=== PATIENT | male | born 1955 | race Caucasian/White ===

== ENCOUNTER 2020-07-26 08:08 | Day surgery (SDC) | payer MEDICARE, BC, SELFPAY ==
[2020-07-26 08:35] VITALS: BP 145/85; PULSE 57; RESP 16; TEMP 36.2; O2SAT 99
[2020-07-26] MEDS: Tropicam./Phenyleph. (1/2.5%) 5 ML BTL OS ×3 (08:39→08:49)
[2020-07-26] MEDS: Tetracaine 0.5% 4 ML BTL OS (09:37)
[2020-07-26] MEDS: Duovisc Viscoelastic System EACH 1 EACH (09:39)
[2020-07-26] MEDS: Balanced Salt Soln.-PLUS 500 ML BAG (09:39)
[2020-07-26] MEDS: Lidocaine 2% Jelly 6 ML SYR (09:40)
[2020-07-26] MEDS: Lidocaine 1% Pres-Free 5 ML VIAL (09:40)
[2020-07-26] MEDS: Povidone-Iodine Ophth 30 ML BTL (09:41)
--- NOTE | 2020-07-26 10:09 | W.PM.DSUDISC ---
Discharge Plan Disposition Patient Disposition: HOME Condition: Good Discharge Details Attending Provider: Alexander Abrams Primary Care Provider: Inocencio Peterson Home Meds and New Rx's Prescriptions: No Action COSOPT 5 ML drops 1 drp Ophthalmic BID RF: 0 ONE-A-DAY MEN'S 1 TAB tablet 1 tab PO DAILY RF: 0 XALATAN 2.5 ML drops 1 drp OU DAILY RF: 0 ECOTRIN 81 MG TABLET.DR 81 mg PO DAILY Qty: 90 RF: 3 PROCTOCREAM-HC 2.5% 30 GM CREAM.GM. 1 applic Topical PRN Qty: 30 RF: 1 ZOCOR 10 MG tablet 5 mg PO HS Qty: 90 RF: 3 tamsulosin 0.4 mg capsule 0.4 mg PO DAILY RF: 0 metoprolol tartrate 50 mg tablet 50 mg PO BID RF: 0 gabapentin 300 mg capsule 300 mg PO HS RF: 0 lisinopril-hydrochlorothiazide 20-25 mg tablet 1 tab PO DAILY RF: 0 brimonidine 0.2 % drops 1 drp ophthalmic (eye) BID RF: 0 cholecalciferol (vitamin D3) [Vitamin D3] 125 mcg (5,000 unit) Tablet 125 mcg PO DAILY RF: 0 Discharge Instructions Stand Alone Forms: Post-op Topical Cataract, Marsha Pyle (DSU) Discharge Orders Discharge Orders: Discharge Order (Routine); Ordered 07/26/20 Ordered By: Alexander Abrams DS: Diagnosis Discharge Diagnosis (1) Nuclear sclerotic cataract of left eye: Status: Resolved
--- NOTE | 2020-07-26 10:11 | ROE_ITS ---
Date of service: 07/26/20 Time of Service: 10:12 Operative Note Operative Note DATE OF PROCEDURE: 07/26/20 PRE-OP DIAGNOSIS: Nuclear cataract, left eye Poorly dilating pupil, left eye POST-OP DIAGNOSIS: same PROCEDURE: Cataract extraction by phacoemulsification with intraocular lens implantation, left eye, with pupillary expansion device SURGEON: Alexander Abrams Refer to Anesthesia Record ESTIMATED BLOOD LOSS: 0 PATHOLOGY: none sent COMPLICATIONS: None Patient was transported to: same day Patient's condition: stable Implants: Damian [employer] Damian / [employer] Tecnis [id number] Indications: Progressive decreased vision, left eye Procedure Description: CATARACT SURGERY OPERATIVE REPORT PREOPERATIVE DIAGNOSIS: 1. Nuclear cataract, left eye 2. Poorly dilating pupil, left eye POSTOPERATIVE DIAGNOSIS: Same OPERATION: 1. Cataract extraction using phacoemulsification with posterior chamber intraocular lens implant, left eye. 2. Pupillary dilation and iris stabilization using Malyugin Ring IOL; IOL Model And Pattern Supervisor/Model: Damian & Damian / TAMIKO Tecnis ZCB00 IOL Power: + 15.5 diopters IOL Serial Number: [id number] Optic Diameter: 6.0 mm Haptic/Overall Diameter: 13.00 mm PHACO INFO: Roe Centurion Vision System with OZil and Active Fluidics Cumulative Dispersed Energy (CDE): 10.18 seconds SURGEON: Alexander Abrams MD, RICARDO ANESTHESIA: Monitored Anesthesia Care (MAC), with local sub-tenon's anesthetic infiltration COMPLICATIONS: None SPECIMENS: None INDICATIONS FOR PROCEDURE: The patient is a 65-year-old gentleman with a long history of open-angle glaucoma with significant disc cupping. He has developed moderate bilateral cataracts. He has a history of myopia. Glaucoma is under less than ideal control, and he may require incisional glaucoma surgery in the future. Cataract surgery is undertaken to improve his visual acuity, perhaps have some effect on intraocular pressure, and so he is pseudophakic for possible future glaucoma surgery. PROCEDURE: The correct surgical eye was identified and marked as the left eye and the pupil was dilated in the preoperative area using mydriatics, cycloplegics, and NSAIDS (except in aspirin allergic patients). The dilated pupil size was 5.0 mm. Oral sedation was administered in the form of an Imprimis MKO Melt (midazolam 3mg/ketamine 25mg/ondansetron 2mg). The patient was brought to the operating room where cardiopulmonary monitoring was instituted and surgical time-out was performed, confirming the correct operative eye and IOL power. Topical anesthesia was administered and ophthalmic povidone-iodine 5% was instilled into the conjunctival fornices. Lidocaine gel was applied to the cornea and the everett-ocular area was prepped with Betadine 10% solution and draped in the usual sterile fashion for intraocular surgery, including an apertu re drape. A Tegaderm transparent film dressing was cut in half and used to cover the lashes and lid margins. Care was taken to sequester the lashes and lid margins under the Tegaderm dressing. A lid speculum was placed between the lids of the operative eye and the London-Nahid operating microscope was maneuvered into position. Kylah scissors were then used to make a conjunctival buttonhole approximately 6mm posterior to the limbus in the inferonasal quadrant. Blunt dissection was carried out to expose bare sclera, and a blunt-tipped sub-tenon?s anesthesia cannula was introduced and passed posteriorly along the globe where non- preserved plain lidocaine was injected into posterior sub-Tenon?s space. A sideport knife was used to make a paracentesis port superiorly/superiortemporally. Intraocular phenylephrine/lidocaine was injected into the anterior chamber. The anterior chamber was then filled with viscoelastic. A 2.4mm keratome knife was used to create a half-thickness groove at the limbus and then to construct a three-plane near-clear corneal tunnel extending 2.0mm into clear cornea at the temporal position. A 7.0 mm Malyugin Ring was then inserted into the pupillary space and engaged with the Kuglen hook. A flap was raised on the anterior capsule and capsulorhexis forceps were used to complete a continuous curvilinear capsulorhexis of 5.0 mm. The anterior capsule was noted to be quite thin with some zonular laxity. The anterior chamber was very deep. Balanced salt solution was then used to perform cortical cleaving hydrodissection and nuclear hydrodelineation until the lens could be freely rotated within the capsular bag. The lens nucleus was then disassembled and removed within the capsular bag and iris plane using phacoemulsification. Residual cortical material was removed using the 45-degree angled silicone I/A tip with 0.3mm port. The posterior capsule was carefully polished to remove as much residual lens epithelial cells as safely possible. The capsular bag was then inflated and the anterior chamber deepened with viscoelastic. The lens implant described above was inserted into the capsular bag using the TAMIKO [place] Injector. A Kuglen hook was used to dial the IOL into position. The Malyugin Ring was removed in the reverse order of its insertion. Residual viscoelastic was then removed first from posterior to the IOL, then from the anterior chamber using the I/A handpiece. The lens implant was noted to center nicely within the capsular bag. The incisions were stromally hydrated, and the anterior chamber was reformed using BSS. Then 0.5cc of moxifloxacin 1.0mg/ml were injected into the capsular bag and anterior chamber. The incisions were checked with a Weck spear and found to be secure. Several drops of ophthalmic povidone-iodine 5% were then applied to the eye followed by two drops of Imprimis combination prednisolone/moxifloxacin/nepafenac solution. The drapes were removed and a clear plastic protective eye shield was placed over the eye. The patient was then returned to [facility] Day Surgery in stable condition.
== END 2020-07-26 10:32 | disposition home or self-care (01) ==
PROVIDERS: PCP Family Medicine; Visit Provider Ophthalmology
PROC: (CPT 66982; principal; 2020-07-26 10:30)
DX: H25.12 Age-related nuclear cataract, left eye (principal); H57.09 Other anomalies of pupillary function; H40.10X0 Unspecified open-angle glaucoma, stage unspecified
CPT/HCPCS: 66982; V2632

== ENCOUNTER 2020-08-09 08:06 | Day surgery (SDC) | payer MEDICARE, BC, SELFPAY ==
[2020-08-09] MEDS: Tropicam./Phenyleph. (1/2.5%) 5 ML BTL OD ×3 (08:27→08:51)
[2020-08-09 08:30] VITALS: BP 126/78; PULSE 60; RESP 16; TEMP 36.1; O2SAT 99
[2020-08-09] MEDS: Lidocaine 2% Jelly 6 ML SYR (09:35)
[2020-08-09] MEDS: Tetracaine 0.5% 4 ML BTL OD (09:35)
[2020-08-09] MEDS: Povidone-Iodine Ophth 30 ML BTL (09:36)
[2020-08-09] MEDS: Lidocaine 1% Pres-Free 5 ML VIAL (09:42)
[2020-08-09] MEDS: Duovisc Viscoelastic System EACH 1 EACH (09:46)
[2020-08-09] MEDS: Balanced Salt Soln.-PLUS 500 ML BAG (09:46)
--- NOTE | 2020-08-09 10:04 | W.PM.DSUDISC ---
Discharge Plan Disposition Patient Disposition: HOME Condition: Good Discharge Details Attending Provider: Alexander Abrams Primary Care Provider: Inocencio Peterson Home Meds and New Rx's Prescriptions: No Action COSOPT 5 ML drops 1 drp Ophthalmic BID RF: 0 ONE-A-DAY MEN'S 1 TAB tablet 1 tab PO DAILY RF: 0 XALATAN 2.5 ML drops 1 drp OU DAILY RF: 0 ECOTRIN 81 MG TABLET.DR 81 mg PO DAILY Qty: 90 RF: 3 PROCTOCREAM-HC 2.5% 30 GM CREAM.GM. 1 applic Topical PRN Qty: 30 RF: 1 ZOCOR 10 MG tablet 5 mg PO HS Qty: 90 RF: 3 tamsulosin 0.4 mg capsule 0.4 mg PO DAILY RF: 0 metoprolol tartrate 50 mg tablet 50 mg PO BID RF: 0 gabapentin 300 mg capsule 300 mg PO HS RF: 0 lisinopril-hydrochlorothiazide 20-25 mg tablet 1 tab PO DAILY RF: 0 brimonidine 0.2 % drops 1 drp ophthalmic (eye) BID RF: 0 cholecalciferol (vitamin D3) [Vitamin D3] 125 mcg (5,000 unit) Tablet 125 mcg PO DAILY RF: 0 Discharge Instructions Stand Alone Forms: Post-op Topical Cataract, Marsha Pyle (DSU) Discharge Orders Discharge Orders: Discharge Order (Routine); Ordered 08/09/20 Ordered By: Alexander Abrams DS: Diagnosis Discharge Diagnosis (1) Cortical cataract of right eye: Status: Resolved (2) Nuclear sclerotic cataract of right eye: Status: Resolved (3) Posterior subcapsular age-related cataract, right eye: Status: Deleted
--- NOTE | 2020-08-09 10:06 | W.PM.OP ---
Date of service: 08/09/20 Time of Service: 10:06 Operative Note Operative Note DATE OF PROCEDURE: 08/09/20 PRE-OP DIAGNOSIS: Nuclear/cortical cataract, right eye POST-OP DIAGNOSIS: same PROCEDURE: Cataract extraction using phacoemulsification with intraocular lens implant, right eye SURGEON: Alexander Abrams ANESTHESIA TYPE: Local By Surgeon and MAC Refer to Anesthesia Record ESTIMATED BLOOD LOSS: 0 PATHOLOGY: none sent COMPLICATIONS: None Patient was transported to: same day Patient's condition: stable Implants: Damian and Damian Vision / [employer] Tecnis ZCB00 intraocular lens Indications: Progressive decreased vision due to cataract, right eye Procedure Description: CATARACT SURGERY OPERATIVE REPORT PREOPERATIVE DIAGNOSIS: Nuclear/cortical cataract, right eye POSTOPERATIVE DIAGNOSIS: Same OPERATION: Cataract extraction using phacoemulsification with posterior chamber intraocular lens implant, right eye. IOL: IOL [employer] Professor/Model: [employer] Vision / TAMIKO Tecnis ZCB00 IOL Power: + 15.0 diopters IOL Serial Number: [id number] Optic Diameter: 6.0mm Haptic/Overall Diameter: 13.0mm PHACO INFO: Roe [employer]urion Vision System with OZil and Active Fluidics Cumulative Dispersed Energy (CDE): 9.50 seconds SURGEON: Alexander Abrams MD, RICARDO ANESTHESIA: Monitored Anesthesia Care (MAC), with local sub-tenon's anesthetic infiltration COMPLICATIONS: None SPECIMENS: None INDICATIONS FOR PROCEDURE: The patient is a 65-year-old gentleman with long history of open-angle glaucoma. His glaucoma has advanced to moderate stage, and he has significant disc cupping OU. Intraocular pressures are not at target. Cataract surgery was done in attempt to improve and maximize his vision and remove symptomatic cataract, perhaps in preparation for future incisional glaucoma surgery. He has already undergone cataract surgery in the left eye and now presents for cataract surgery in the right eye. PROCEDURE: The correct surgical eye was identified and marked as the right eye and the pupil was dilated in the preoperative area using mydriatics and cycloplegics. The dilated pupil size was 6.5 mm. Oral sedation was administered in the form of an Imprimis MKO Melt (midazolam 3mg/ketamine 25mg/ondansetron 2mg). The patient was brought to the operating room where cardiopulmonary monitoring was instituted and surgical time-out was performed, confirming the correct operative eye and IOL power. Topical anesthesia was administered and ophthalmic povidone-iodine 5% was instilled into the conjunctival fornices. Lidocaine gel was applied to the cornea and the everett-ocular area was prepped with Betadine 10% solution and draped in the usual sterile fashion for intraocular surgery, including an aperture drape. A Tegaderm transparent film dressing was cut in half and used to cover the lashes and lid margins. Care was taken to sequester the lashes and lid margins under the Tegaderm dressing. A lid speculum was placed between the lids of the operative eye and the London-Nahid operating microscope was maneuvered into position. Kylah scissors were then used to make a conjunctival buttonhole approximately 6mm posterior to the limbus in the inferonasal quadrant. Blunt dissection was carried out to expose bare sclera, and a blunt-tipped sub-tenon?s anesthesia cannula was introduced and passed posteriorly along the globe where non-preserved plain lidocaine was injected into posterior sub-Tenon?s space. A sideport knife was used to make a paracentesis port inferiortemporally. Intraocular phenylephrine/lidocaine was injected into the anterior chamber. The anterior chamber was then filled with viscoelastic. A 2.4mm keratome knife was used to create a half-thickness groove at the limbus and then to construct a three-plane near-clear corneal tunnel extending 2.0mm into clear cornea in the superiortemporal position. . The globe was noted to be quite soft, low scleral rigidity. A flap was raised on the anterior capsule and capsulorhexis forceps were used to complete a continuous curvilinear capsulorhexis of 5.0 mm. Moderate zonular laxity was noted. Balanced salt solution was then used to perform cortical cleaving hydrodissection and nuclear hydrodelineation until the lens could be freely rotated within the capsular bag. The lens nucleus was then disassembled and removed within the capsular bag and iris plane using phacoemulsification. Residual cortical material was removed using the I/A handpiece. The posterior capsule was carefully polished to remove as much residual lens epithelial cells as safely possible. The capsular bag was then inflated and the anterior chamber deepened with viscoelastic. The lens implant described above was inserted into the capsular bag using the TAMIKO [place] Injector. A Kuglen hook was used to dial the IOL into position. Residual viscoelastic was then removed first from posterior to the IOL, then from the anterior chamber using the I/A handpiece. The lens implant was noted to center nicely within the capsular bag. The incisions were stromally hydrated, and the anterior chamber was reformed using BSS. Then 0.5cc of moxifloxacin 1.0mg/ml were injected into the capsular bag and anterior chamber. The incisions were checked with a Weck spear and found to be secure. Several drops of ophthalmic povidone-iodine 5% were then applied to the eye followed by two drops of Imprimis combination prednisolone/moxifloxacin/nepafenac solution. The drapes were removed and a clear plastic protective eye shield was placed over the eye. The patient was then returned to Same Day Surgery in stable condition.
[2020-08-09] MEDS: Acetaminophen 500 MG TAB 1000 MG PO (10:13)
[2020-08-09 10:28] VITALS: BP 136/78; PULSE 63; RESP 18; TEMP 36.8; O2SAT 97
== END 2020-08-09 10:35 | disposition home or self-care (01) ==
PROVIDERS: PCP Family Medicine; Visit Provider Ophthalmology
PROC: (CPT 66984; principal; 2020-08-09 10:30)
DX: H25.11 Age-related nuclear cataract, right eye (principal); H25.041 Posterior subcapsular polar age-related cataract, right eye; I10 Essential (primary) hypertension; G47.30 Sleep apnea, unspecified
CPT/HCPCS: 66984; V2632